=== PATIENT | male | born 1940 | race Caucasian/White ===

== ENCOUNTER 2018-08-18 20:54 | Observation (INO) ==
[2018-08-18 21:28] LABS: Bilirubin,Urine Negative (Negative); Blood,Urine Trace-intact (Negative); Clarity,Urine Clear (Clear); Color,Urine Yellow (Yellow); Glucose,Urine (UA) 100 mg/dL (Normal); Ketones,Urine Negative (Negative); Leukocyte Esterase,Urine Negative (Negative); Nitrite,Urine Negative (Negative); Protein,Urine Negative (Neg-Trace); Urobilinogen,Urine Normal (Normal)
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
[2018-08-18 21:32] LABS: Basophils # 0.1 K/mcL (0.0-0.2); Eosinophils # 0.3 K/mcL (0.0-0.6); Eosinophils % 3.4 %; Hemoglobin 12.7 g/dL (12.9-16.9); Immature Granulocytes % 0.4 % (0-4); Lymphocytes # 0.6 K/mcL (0.6-4.6); Lymphocytes % 8.8 %; Mean Corpuscular HGB Conc 32.6 g/dL (31.6-35.5); Mean Corpuscular Hemoglobin 30.8 pg (28.0-33.3); Mean Corpuscular Volume 94.4 fL (83.0-100.0); Mean Platelet Volume 9.5 fL (9.4-12.4); Monocytes # 0.8 K/mcL (0.0-1.3); Monocytes % 10.6 %; Neutrophils # 5.5 K/mcL (1.6-8.9); Platelet Count 180 K/mcL (140-400); Red Blood Count 4.13 M/mcL (4.19-5.50); Red Cell Distribution Width 12.8 % (11.5-14.5); Segmented Neutrophils % 75.8 %
[2018-08-18 21:36] LABS: RBC,Urine 0-3 per hpf (0-3)
[2018-08-18 21:52] LABS: BUN/Creatinine Ratio 16 (6-26); Blood Urea Nitrogen 19 mg/dL (8-23); Calcium 8.7 mg/dL (8.6-10.3); Carbon Dioxide 25 mEq/L (23-29); Chloride 105 mEq/L (98-107); Glucose 121 mg/dL (70-105); Osmolality,Calculated 292 (280-300); Potassium 4.3 mEq/L (3.5-5.1); Sodium 139 mEq/L (136-145); Troponin I < 0.03 ng/mL (< 0.04); eGFR For Non-African Americans 58 (> 60)
[2018-08-18] MEDS ORDERED: Naloxone 0.4 MG/ML INJ IVP PRN (22:44)
[2018-08-19] MEDS ORDERED: amLODIPine 5 MG TABLET PO ONE (00:34)
[2018-08-19] MEDS ORDERED: Neosporin OINT 1 APPL PACKET TP ONE (10:08)
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
[2018-08-19 11:36] LABS: Thyroid Stimulating Hormone 2.762 mcIU/mL (0.340-5.600)
[2018-08-19 13:34] LABS: Amphetamine Screen,Urine Negative ng/mL (Cutoff=1000); Barbiturate Screen,Urine Negative ng/mL (Cutoff=200); Benzodiazepines Screen,Urine Negative ng/mL (Cutoff=200); Cannabinoid Screen,Urine Negative ng/mL (Cutoff = 50); Cocaine Screen,Urine Negative ng/mL (Cutoff= 300); Opiate Screen,Urine Negative ng/mL (Cutoff=300); Phencyclidine Screen,Urine Negative ng/mL (Cutoff=25)
[2018-08-19 17:53] LABS: Folate 20.5 ng/mL (3.0-16.0)
[2018-08-20 06:18] LABS: Basophils # 0.1 K/mcL (0.0-0.2); Basophils % 1.1 %; Eosinophils # 0.2 K/mcL (0.0-0.6); Eosinophils % 5.4 %; Hematocrit 37.3 % (37.5-50.1); Hemoglobin 12.1 g/dL (12.9-16.9); Immature Granulocytes % 0.2 % (0-4); Lymphocytes # 0.8 K/mcL (0.6-4.6); Lymphocytes % 17.6 %; Mean Corpuscular HGB Conc 32.4 g/dL (31.6-35.5); Mean Corpuscular Hemoglobin 30.6 pg (28.0-33.3); Mean Corpuscular Volume 94.4 fL (83.0-100.0); Mean Platelet Volume 10.3 fL (9.4-12.4); Monocytes # 0.6 K/mcL (0.0-1.3); Monocytes % 12.7 %; Neutrophils # 2.8 K/mcL (1.6-8.9); Platelet Count 159 K/mcL (140-400); Red Blood Count 3.95 M/mcL (4.19-5.50); Red Cell Distribution Width 12.8 % (11.5-14.5)
[2018-08-20 06:46] LABS: Albumin 3.4 g/dL (3.5-5.7); Albumin/Globulin Ratio 1.4 (1.1-2.2); Bilirubin,Total 0.6 mg/dL (0.3-1.0); Calcium 8.4 mg/dL (8.6-10.3); Globulin 2.4 g/dL (2.4-3.5); Total Protein 5.8 g/dL (6.4-8.9)
[2018-08-20 08:12] VITALS: BP 121/68
[2018-08-20] MEDS ORDERED: Cyanocobalamin (B-12) 1,000 MCG/ML VIAL IM ONE (08:48)
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
--- NOTE | 2018-08-21 08:47 | Electrocardiograph Report ---
[address] [address] Test Date: 2018-08-18 Pat Name: Clifton Aguero Department: [id number] Room: [facility] Gender: M It Engineer: Yuan : 1940 Requested By: Wang Almonte Order Number: [id number] Reading MD: Amanda Plata Measurements Intervals [place] Rate: 57 P: 53 [place]: 163 QRS: -22 QRSD: 82 T: 19 QT: 403 QTc: 397 Interpretive Statements SINUS BRADYCARDIA BORDERLINE LEFT AXIS DEVIATION MODERATE VOLTAGE CRITERIA FOR LVH, CONSIDER NORMAL VARIANT Electronically Signed On 08-21-2018 8:46:13 EST by Amanda Plata
== END 2018-08-20 12:10 | disposition home or self-care (01) ==
LOC: EMEROOPIK 20:54 → INPPIK 20:54
PROVIDERS: ADMIT Internal Medicine; ATTEND Internal Medicine

== ENCOUNTER 2018-09-25 08:20 | Observation (INO) ==
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
[2018-09-25] MEDS ORDERED: 0.9 % Sodium Chloride 1,000 ML IVC ONE (08:23)
[2018-09-25 09:00] LABS: Basophils # 0.1 K/mcL (0.0-0.2); Eosinophils % 0.7 %; Hematocrit 43.8 % (37.5-50.1); Hemoglobin 14.2 g/dL (12.9-16.9); Immature Granulocytes % 0.2 % (0-4); Lymphocytes # 0.7 K/mcL (0.6-4.6); Lymphocytes % 12.1 %; Mean Corpuscular HGB Conc 32.4 g/dL (31.6-35.5); Mean Corpuscular Hemoglobin 31.1 pg (28.0-33.3); Mean Corpuscular Volume 95.8 fL (83.0-100.0); Mean Platelet Volume 10.5 fL (9.4-12.4); Monocytes # 0.5 K/mcL (0.0-1.3); Monocytes % 8.8 %; Neutrophils # 4.5 K/mcL (1.6-8.9); Platelet Count 174 K/mcL (140-400); Red Blood Count 4.57 M/mcL (4.19-5.50); Red Cell Distribution Width 12.6 % (11.5-14.5); Segmented Neutrophils % 77.2 %
[2018-09-25 09:22] LABS: Troponin I < 0.03 ng/mL (< 0.04)
[2018-09-25 10:03] LABS: Alanine Aminotransferase 8 Units/L (7-52); Alkaline Phosphatase 63 Units/L (34-104); Aspartate Amino Transferase 18 Units/L (13-39); Chloride 103 mEq/L (98-107); Potassium 3.9 mEq/L (3.5-5.1); Sodium 138 mEq/L (136-145)
[2018-09-25 10:09] LABS: Carbon Dioxide 25 mEq/L (23-29)
[2018-09-25 10:10] LABS: Albumin/Globulin Ratio 1.5 (1.1-2.2); BUN/Creatinine Ratio 15 (6-26); Bilirubin,Total 0.7 mg/dL (0.3-1.0); Blood Urea Nitrogen 20 mg/dL (8-23); Calcium 8.9 mg/dL (8.6-10.3); Globulin 2.7 g/dL (2.4-3.5); Glucose 112 mg/dL (70-105); Osmolality,Calculated 289 (280-300); Total Protein 6.7 g/dL (6.4-8.9); eGFR For Non-African Americans 52 (> 60)
[2018-09-25] MEDS ORDERED: Naloxone 0.4 MG/ML INJ IVP PRN (11:00)
[2018-09-25] MEDS ORDERED: 0.9 % Sodium Chloride 1,000 ML IVC SCH (11:00)
[2018-09-25] MEDS ORDERED: 0.45 % Sodium Chloride w/KCl 20 MEQ/1,000 ML MLS IVC SCH (15:15)
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
--- NOTE | 2018-09-25 17:46 | Discharge Summary ---
Orders not resulted at time of discharge: Pending orders 09/25/18 08:23 ECG 12 lead ECG [ECG] Stat 09/26/18 04:00 Vitamin B12 AM 0400 Date of Encounter: 09/25/18 Time of Encounter: 17:00 - Discharge Diagnosis (1) Bilateral subdural hematomas Priority: Primary Status: Acute (2) Generalized weakness Priority: Secondary Status: Acute (3) B12 deficiency Priority: Secondary Status: Acute (4) Azotemia Priority: Secondary Status: Acute (5) Weight loss Priority: Secondary Status: Chronic (6) BPH (benign prostatic hyperplasia) Priority: Secondary Status: Chronic Qualifiers: Lower urinary tract symptom presence: symptoms present Lower urinary tract symptom detail: urinary hesitancy Qualified Code(s): N40.1 - Benign prostatic hyperplasia with lower urinary tract symptoms; R39.11 - Hesitancy of micturition (7) Hypertension Priority: Secondary Status: Chronic Qualifiers: Hypertension type: essential hypertension Qualified Code(s): I10 - Essential (primary) hypertension (8) Headache Priority: Secondary Status: Acute Qualifiers: Headache type: unspecified Headache chronicity pattern: acute headache Intractability: not intractable Qualified Code(s): R51 - Headache Hospital course: Mr. Aguero is a 78 year old male who came to emergency room stating he had been progressively weaker over the last 3 days. He reports he was chopping wood without injury on September 22. The following day he had onset of weakness which progressed to the point he was unable to get out of bed and walk. His brought him to emergency room. He was evaluated and admitted to [facility] for ongoing care needs. Initial orders were written by the emergency room physician. I saw him the afternoon of September 25 performed a history and physical. Head CT was ordered to follow-up on abnormal neurologic exam and complaints of headache. The CT showed large bilateral subdural hematoma measuring up to 2.6 cm thickness on the right and 2.3 cm thickness on the left. There was also possible 5 mm acute hemorrhage in the white matter of the right frontal lobe. I discussed these findings with the patient. He was agreeable to be transferred to [facility] for neurosurgical evaluation. - Time Spent with Patient Total time spent providing and/or coordinating discharge services: - Discharge Medications Home Medications: No Known Home Drugs 09/25/18 [History] Allergies/Adverse Reactions: Allergy/AdvReac Type Severity Reaction Status Date / Time No Known Allergies Allergy Verified 09/25/18 08:21 Date of admission: 09/25/18 10:51 Primary care physician: PCP NONE Consults: 09/25/18 11:00 Consult to Travelift Operator [CONS] Routine Reason for SW Consult: Evaluate safety in the home situation and need for home health or care home placement. 09/25/18 13:37 Consult to Nutrition [CONS] Routine Comment: Consulting Provider: NUTRITION Reason for Dietary Consult: MST Score Other:: pt states that he has lost 30-40 pounds in the past 3-4 months 09/25/18 15:13 Consult to Occupational Therapy [CONS] Routine Comment: Evaluate, develop and implement POC Reason for Consult: Weakness Does patient have active BEDREST order?: No Is patient medically & hemodynamically stable?: Yes Patient assessed for mobility or mobilized this visit?: Yes Consult to Physical Therapy [CONS] Routine Comment: Evaluate, develop and implement POC Reason for Consult: Weakness Does patient have active BEDREST order?: No Is patient medically & hemodynamically stable?: Yes Patient assessed for mobility or mobilized this visit?: Yes - Constitutional Vitals: Temp Pulse Resp BP Pulse Ox 97.4 F L 67 18 197/87 97 09/25/18 08:26 09/25/18 11:13 09/25/18 11:13 09/25/18 11:13 09/25/18 11:13 - Patient Status Disposition: Transfer Other Condition: Fair - Discharge Instructions
[2018-09-25 19:09] VITALS: BP 149/81
--- NOTE | 2018-09-28 17:02 | Electrocardiograph Report ---
[place] [id number] Test Date: 2018-09-25 Pat Name: Clifton Aguero Department: EDP-12 Room: [facility] Gender: M Dining Room Host/Hostess: : 1940 Requested By: Wang Almonte Order Number: [id number] Reading MD: Amanda Plata Measurements Intervals [place] Rate: 57 P: 62 DE: 156 QRS: 4 QRSD: 108 T: 21 QT: 441 QTc: 430 Interpretive Statements Sinus rhythm Anteroseptal infarct, old Borderline ST depression, diffuse leads Electronically Signed On 09-28-2018 17:01:18 EST by Amanda Plata
== END 2018-09-25 19:33 | disposition short-term general hospital (02) ==
LOC: INPPIK 08:20 → EMEROOPIK 08:20 → INPPIK 11:23
PROVIDERS: ADMIT Internal Medicine; ATTEND Internal Medicine